=== PATIENT | male | born 2000 | race Two or more races ===

== ENCOUNTER 2024-04-27 23:54 | Emergency (ER) | payer SELFPAY ==
[2024-04-28] MEDS ORDERED: Acetaminophen/HYDROcodone 325-5 MG Tab PO ONE (00:15)
[2024-04-28] MEDS: Ibuprofen 600 MG Tab PO ONE (00:24)
[2024-04-28] MEDS: oxyCODONE 5 MG Tab PO ONE (00:24)
[2024-04-28] MEDS: Amoxicillin 500 MG Cap PO ONE (00:24)
== END 2024-04-28 00:44 | disposition home or self-care (01) ==
LOC: MW.ED 23:54
DX: K02.9 Dental caries, unspecified (principal); Z75.8 Other problems related to medical facilities and other health care
CPT/HCPCS: 99282; A9270; 99283